=== PATIENT | female | born 1945 | race African-American/Black ===

== ENCOUNTER 2019-12-05 20:13 | Emergency (ER) | payer MEDICARE ==
[~2019-12-05] VITALS: Ht 167.6 cm; Wt 82.7 kg
[2019-12-05 22:53] VITALS: BP 138/54
[2019-12-05] MEDS ORDERED: ACETAMINOPHEN/CODEINE 300-30 MG TABLET PO ONE (23:00)
[2019-12-05] MEDS ORDERED: IBUPROFEN 600 MG TABLET PO ONE (23:00)
== END 2019-12-06 00:33 | disposition home or self-care (01) ==
LOC: EMS 20:13
DX: S52.612A Displaced fracture of left ulna styloid process, initial encounter for closed fracture (principal); S52.572A Other intraarticular fracture of lower end of left radius, initial encounter for closed fracture; I10 Essential (primary) hypertension; W01.0XXA Fall on same level from slipping, tripping and stumbling without subsequent striking against object, initial encounter; Y93.89 Activity, other specified; Y92.090 Kitchen in other non-institutional residence as the place of occurrence of the external cause; Y99.8 Other external cause status